=== PATIENT | female | born 1980 | race Caucasian/White ===

== ENCOUNTER → 2024-06-30 10:38 | Outpatient (REF) | payer OTHER, SELFPAY | LOC: HWRAD 10:38 | PROVIDERS: ATTENDING PHYSICIAN Nurse Practitioner Adult Health | DX: M54.16 Radiculopathy, lumbar region (principal) | CPT/HCPCS: 72110 ==

== ENCOUNTER → 2024-07-17 17:50 | Outpatient (REF) | payer OTHER, SELFPAY | LOC: PAVMRI 17:50 | PROVIDERS: ATTENDING PHYSICIAN Nurse Practitioner Adult Health | DX: M54.16 Radiculopathy, lumbar region (principal); R20.2 Paresthesia of skin; R29.898 Other symptoms and signs involving the musculoskeletal system | CPT/HCPCS: 72148 ==

== ENCOUNTER 2025-08-20 06:28 | Day surgery (SDC) | payer OTHER, SELFPAY | END 2025-08-20 09:24 | disposition home or self-care (01) | LOC: GI 06:28 | PROVIDERS: ATTENDING PHYSICIAN Internal Medicine; FAMILY PHYSICIAN Nurse Practitioner Adult Health | DX: Z12.11 Encounter for screening for malignant neoplasm of colon (principal); K64.9 Unspecified hemorrhoids; D12.2 Benign neoplasm of ascending colon; D12.3 Benign neoplasm of transverse colon; Z86.0101 Personal history of adenomatous and serrated colon polyps | CPT/HCPCS: 45385; 88305 ==